=== PATIENT | female | born 1990 | race Caucasian/White ===

== ENCOUNTER → 2018-02-14 10:16 | Outpatient (CLI) | payer OTHER, SELFPAY ==
[2018-02-14 11:06] LABS: HCG Qualitative, Serum Negative (Negative)
== END ==
PROVIDERS: Visit Provider Internal Medicine Adolescent Medicine
DX: N92.6 Irregular menstruation, unspecified (principal)
CPT/HCPCS: 36415; 84703

== ENCOUNTER → 2018-11-19 12:28 | Outpatient (CLI) | payer OTHER, SELFPAY | PROVIDERS: PCP Internal Medicine Adolescent Medicine; Visit Provider Internal Medicine Adolescent Medicine | DX: N92.6 Irregular menstruation, unspecified (principal) | CPT/HCPCS: 36415; 84702 ==

== ENCOUNTER → 2018-11-30 11:59 | Outpatient (CLI) | payer OTHER, SELFPAY ==
[2018-11-30 12:34] LABS: Basophils % 0.3 % (0.1-2.0); Eosinophils # 0.2 K/mm3 (0.0-0.4); Eosinophils % 2.9 % (0.1-12.0); Hemoglobin 12.5 g/dL (12.2-16.2); Lymphocytes # 1.1 K/mm3 (0.7-4.5); Lymphocytes % 16.4 % (10-50); Mean Corpuscular HGB Conc 33.8 g/dL (31.8-35.4); Mean Corpuscular Hemoglobin 29.7 pg (27.0-31.2); Mean Corpuscular Volume 87.9 fl (81-99); Mean Platelet Volume 8.3 fl (7.4-10.4); Monocytes # 0.2 K/mm3 (0.1-1.0); Monocytes % 3.6 % (1.7-9.3); Neutrophils # 4.9 K/mm3 (1.8-7.8); Neutrophils % 76.8 % (37.0-80.0); Platelet Count 218 K/mm3 (142-424); Red Blood Count 4.21 M/mm3 (4.20-5.40); Red Cell Distribution Width 12.7 % (11.5-17.5); White Blood Count 6.4 K/mm3 (4.8-10.8)
[2018-12-01 07:20] LABS: HIV Screen 4th Generation wRfx Non Reactive (Non Reactive)
[2018-12-01 12:36] LABS: Hepatitis B Surface Antigen Negative (Negative); Hepatitis C Antibody <0.1 s/co ratio (0.0-0.9); Rapid Plasma Reagin Ab Titer Non Reactive (NonRea<1:1); Rubella Antibodies, IgG 1.38 index (Immune >0.99)
== END ==
PROVIDERS: Visit Provider Nurse Practitioner Obstetrics & Gynecology
DX: Z34.90 Encounter for supervision of normal pregnancy, unspecified, unspecified trimester (principal)
CPT/HCPCS: 36415; 85025; 86592; 86703; 86762; 86850; 87340; 87380; G0432

== ENCOUNTER → 2018-12-07 12:31 | Outpatient (CLI) | payer OTHER, SELFPAY ==
--- NOTE | 2018-12-07 12:33 | US_ITS ---
US OB transvaginal HISTORY: ITS.REASON: US OB Dates ORDERING PHYSICIAN: Ha Raymond MD PATIENT AGE: 28 years COMPARISON: None FINDINGS: An intrauterine gestational sac is present with a pole with a crown-rump length of 8w5dcm correlating to gestational age of 9w1d. heart tones are present with an FHR of 157 bpm's. Yolk sac is noted. The amnion and chorion have not yet fused. Adnexa: 3 cm corpus luteum on the left. IMPRESSION: Live intrauterine gestation at 8 weeks 5 days as described above. Estimated due date by Ultrasound is 07/14/2019
== END ==
PROVIDERS: PCP Internal Medicine Adolescent Medicine; Visit Provider Nurse Practitioner Obstetrics & Gynecology
DX: O26.841 Uterine size-date discrepancy, first trimester (principal)
CPT/HCPCS: 76817

== ENCOUNTER → 2019-02-11 12:34 | Outpatient (CLI) | payer OTHER, SELFPAY ==
[2019-02-11 13:19] LABS: Alanine Aminotransferase 12 U/L (12-78); Albumin Level 3.5 gm/dL (3.4-5.0); Alkaline Phosphatase 47 U/L (46-116); Anion Gap 16.1 mEq/L (5-15); Aspartate Amino Transferase 8 U/L (15-37); Bilirubin,Total 0.3 mg/dL (0.2-1.0); Blood Urea Nitrogen 10 mg/dL (7-18); Calcium 8.8 mg/dL (8.5-10.1); Carbon Dioxide 24 mmol/L (21.0-32.0); Chloride 103 mmol/L (98-107); Creatinine,Serum 0.55 mg/dL (0.55-1.02); Estimated Glomerular Filt Rate 134 ml/min (>60); GFR (African American) 162 ML/MIN (>60); Globulin 3.5 gm/dl (1.3-3.2); Glucose 73 mg/dL (74-106); Potassium 4.1 mmoL/L (3.5-5.1); Sodium 139 mmol/L (136-145)
== END ==
PROVIDERS: Visit Provider Nurse Practitioner Obstetrics & Gynecology
DX: L29.9 Pruritus, unspecified (principal); Z34.90 Encounter for supervision of normal pregnancy, unspecified, unspecified trimester
CPT/HCPCS: 80053

== ENCOUNTER → 2019-02-27 10:16 | Outpatient (CLI) | payer OTHER, SELFPAY ==
--- NOTE | 2019-02-27 10:17 | US_ITS ---
US OB /maternal detail: INDICATION: ITS.REASON: US OB Complete ORDERING PHYSICIAN: Ha Raymond MD PATIENT AGE: 28 years TECHNIQUE: ultrasound transabdominal scanning. COMPARISON: No previous relevant studies. FINDINGS: Single viable intrauterine gestation. Variable position ending in cephalic position at the end of the exam. Placenta: Post placenta grade 1. There is average amount fluid. The cervix appears satisfactory. Closed and measuring 3.4 cm in length. Complete survey performed and was unremarkable on the submitted images as in PACS. No discrete anomalies identified on survey imaging by technologist. Active fetus. There appears to be a two-vessel cord. There is some straightening of the cord as well which sometimes may simulate a two-vessel cord.. 4- chamber heart noted. Survey of brain & ventricles unremarkable. Face and neck survey unremarkable. Diaphragm and chest views unremarkable. Abdomen: Both kidneys noted and unremarkable. Stomach noted and satisfactory. Spine: Survey of the spine satisfactory with no anomalies identified nor imaged. Both arms and legs noted. Amniotic Fluid: Adequate. Maternal adnexa: No significant findings. Measurements: Average ultrasound age 20w6d. Gestational Age 20w3d. Estimated due date by ultrasound age 0807/11/2019. Estimated weight 377 grams. BPD = 20w5d OFD = 21w4d HC = 20w4d AC = 21w3d FL = 20w2d Growth Percentile= 65% Heart Rate = 152 bpm Cerebellum = 21w1s Humerus = 20w3d HC/AC is 1.11 (1.09-1.26). CI is 74% (70-86%). FL/BPD is 67%. FL/AC is 20%. IMPRESSION: There is a single live fetus in variable position with an average ultrasound age of 20 weeks and 6 days. There may be a two-vessel cord. Follow-up may confirm. Other anatomy is unremarkable. The fetus is active. Please see above for detail
== END ==
PROVIDERS: PCP Internal Medicine Adolescent Medicine; Visit Provider Nurse Practitioner Obstetrics & Gynecology
DX: Z36.0 Encounter for antenatal screening for chromosomal anomalies (principal)
CPT/HCPCS: 76811

== ENCOUNTER → 2019-06-12 16:23 | Outpatient (CLI) | payer OTHER, SELFPAY | PROVIDERS: Visit Provider Obstetrics & Gynecology | DX: Z34.90 Encounter for supervision of normal pregnancy, unspecified, unspecified trimester (principal) | CPT/HCPCS: 86403 ==

== ENCOUNTER 2019-07-08 05:32 | Inpatient (IN) ==
[2019-07-08 06:08] LABS: Microscopic, Urine URINE MICROSCOPIC (MICROSCOPIC)
[2019-07-08 06:08] LABS: Basophils % 0.3 % (0.1-2.0); Eosinophils # 0.2 K/mm3 (0.0-0.4); Eosinophils % 2.3 % (0.1-12.0); Hematocrit 32.6 % (37.0-47.0); Hemoglobin 10.5 g/dL (12.2-16.2); Lymphocytes # 1.3 K/mm3 (0.7-4.5); Lymphocytes % 19.8 % (10-50); Mean Corpuscular HGB Conc 32.2 g/dL (31.8-35.4); Mean Corpuscular Volume 80.9 fl (81-99); Mean Platelet Volume 9.9 fl (7.4-10.4); Monocytes # 0.3 K/mm3 (0.1-1.0); Monocytes % 4.3 % (1.7-9.3); Neutrophils # 4.9 K/mm3 (1.8-7.8); Neutrophils % 73.3 % (37.0-80.0); Platelet Count 178 K/mm3 (142-424); Red Blood Count 4.04 M/mm3 (4.20-5.40); Red Cell Distribution Width 14.5 % (11.5-17.5); White Blood Count 6.7 K/mm3 (4.8-10.8)
[2019-07-08 06:19] LABS: Anion Gap 15.8 mEq/L (5-15); Calcium 8.9 mg/dL (8.5-10.1)
[2019-07-08 06:40] LABS: Appearance,Urine CLEAR (Clear); Bilirubin,Urine Negative (Negative); Blood, Urine Negative (Negative); Color,Urine YELLOW (Yellow); Glucose,Urine (UA) Negative (Negative); Ketones,Urine Negative (Negative); Leukocyte Esterase,Urine Negative (Negative); Protein,Urine Negative (Negative); Urobilinogen,Urine 0.2 EU/dl (0.2)
[2019-07-08 06:48] LABS: Amphetamine/Metha Screen,Urine Negative ng/mL (<1000); Barbiturates Screen,Urine Negative ng/mL (<200); Benzodiazepines Screen,Urine Negative ng/mL (<200); Cannabinoid Screen,Urine Negative ng/mL (<50); Cocaine Screen,Urine Negative ng/mL (<300); Methadone Screen,Urine Negative ng/mL (<300); Opiate Screen,Urine Negative ng/mL (<300); Phencyclidine Screen,Urine Negative ng/mL (<25)
--- NOTE | 2019-07-08 08:12 | Progress Note ---
[facility] Anesthesia Record Part I Intake, IV Amount: 2,000 Estimated blood loss (mL): 600 Urine output (mL): 350 Blood Pressure: 115/87 SaO2: 98 Pulse Rate: 112 Respiratory Rate: 12 Temperature: 97.8 F Patient is:: Awake, Stable Stable to PACU at:: 08:10
--- NOTE | 2019-07-08 08:12 | Progress Note ---
[facility] Anesthesia Checklist - Structural Data Admitted From: Inpatient Planned Operative Procedure/s: c/section Consent for Planned Operative Procedure(s) Verified: Yes - Airway Assessment C-Spine Mobility Assessed: Yes TMJ Mobility Assessed: Yes Dentition: Good Dentition - Neurological Assessment Level of Consciousness: Awake, Alert, Appropriate - Anesthesia Plan Anesthesia Risk discussed: Yes Anesthesia Plan: Verified ASA Class: II Anesthesia Type: Spinal Acuity:: asa2 [facility] History I have reviewed the patient's past medical history: Yes *Have you ever received a pneumonia vaccine?: No *Have you received a flu vaccine this season?: No Anesthesia experience/problems:: none Other Surgeries: Yes: Amputation: No Fractures: No - *Social History Smoking Status: Never smoker Alcohol Intake: never Substance Use Type: denies use *Occupational Status:: employed *Travel in the last 8 weeks: None Family Hx:: No significant family history Para: 1
--- NOTE | 2019-07-08 08:13 | Operative Note ---
Date of procedure: 07/08/19 Pre-op Diagnosis:: Term , previous section Post-op Diagnosis:: Term , previous section Procedure performed:: Repeat lower segment transverse section Surgeon:: Ha Raymond MD PRESSURIZATION MECHANIC:: Anthony Russo Anesthesia: spinal Estimated blood loss (mL): 600 Clinical Note:: She is a 29-year-old 2 para 1 who was 39+ weeks gestational age. She has had a previous section and as a result of that was offered repeat lower segment transverse section at term. The risks and benefits of surgery were discussed with the patient prior to surgery. Operative findings:: She delivered a liveborn male child at 7:38 AM on the morning of July 08. Baby's Apgars were 8 at 1 minute and 9 at 5 minutes. Ovaries and tubes appeared normal. Operative note:: She was taken to the operating room where spinal anesthesia was found be adequate. She was prepped and draped in normal sterile fashion in the supine position with a leftward tilt. A Byrnes catheter was in the bladder. A Pfannenstiel skin incision was made with knife then carried through to the underlying layer of fascia with cautery. The fascia was opened in the midline with cautery and extended laterally using Maldonado scissors. Mustang clamps were applied to the superior aspect of the fascial incision which was tented up and the underlying rectus muscles dissected off using cautery. The Yday clamps were then applied to the inferior aspect of the fascial incision which in a similar fashion was tented up and the underlying rectus muscles dissected off using cautery. The rectus muscles were then in the midline, the peritoneum identified, and entered sharply with Metzenbaum scissors. This incision was then extended superiorly and inferiorly with cautery. We had good visualization of the bladder inferiorly. The bladder peritoneum was then opened in the midline and extended laterally using Metzenbaum scissors. A bladder flap was created digitally. Transverse incision was made through the uterine muscle to the amnion. This incision was then extended laterally using fingers traction. The amnion was entered sharply with knife. There was clear amniotic fluid. The 's head was then delivered atraumatically. This was followed by the anterior shoulder and the rest of the 's body atraumatically. The oropharynx and nasopharynx were bulb suctioned. The infant was then handed off to Dr. Scott who assigned Apgars of 8 at 1 minute and 9 at 5 minutes. We then obtained cord blood as well as cord pH. The pH was not obtained.The Román device was then placed within the abdominal cavity. Using gentle traction on the cord and countertraction on the fundus I was able to easily deliver the placenta intact. It had a normal three-vessel cord. The uterus was then cleared of clots and debris . The uterine incision was then efrain sed using running 0 Vicryl suture in a locked fashion. A second layer of the same suture was used to imbricate the first layer. There was a small amount of bleeding on both the left and right sides of the incision and interrupted [id number] Vicryl suture was used here to obtain excellent hemostasis the bladder peritoneum was then closed using running 2-0 Vicryl suture in a locked fashion. The gutters and cul-de-sac were then cleared of clots and debris . Once again hemostasis was assured. I then elected to place a large piece of Interceed along the uterine incision. The peritoneum was grasped with Ann clamps and closed using running 2-0 Vicryl suture. The rectus muscles were then reapproximated using running 0 Vicryl suture. The fascia was closed using running #1 Vicryl suture. The subcutaneous tissues were then irrigated with warm water followed by closure Trev's fascia using running 2-0 Monocryl suture. The skin was closed with edgar. I then cleaned the skin with Hibiclens. Sterile dressings were applied. She tolerated the procedure well and was taken to the recovery room in excellent condition. All sponges minute and needle counts were correct. Estimate a blood loss was approximately 600 mL. Condition: stable Disposition: PACU Specimens:: Products of conception Complications:: None
--- NOTE | 2019-07-08 08:13 | Progress Note ---
[facility] Anesthesia Record Part II Discharge Time: 08:40 Destination: Obstetric PACU nurse assessment reviewed?: Yes Patient Condition:: Good Anesthesia Complications:: None Swallowing reflex intact?: Yes Cyanosis?: No
--- NOTE | 2019-07-08 08:15 | History & Physical Report ---
OB - H&P: HPI Antepartum - History of Present Illness Chief complaint: Term , previous section History of present illness: She is a 29-year-old 2 para 1 at 39+ weeks gestational age. She has had a previous section and as a result of that was offered repeat lower segment transverse section at term. The risks and benefits of surgery were discussed with the patient prior to surgery. - History of Present Criteria for establishing EDC:: LMP confirmed by 1st trimester US care: good care Ultrasounds: normal 1st trimester US, normal mid trimester US Obstetrical complications: none Medical complications: none - Labs Blood type: A (+) positive Rubella: immune RPR/VDRL: nonreactive GBS status: negative [facility] History I have reviewed the patient's past medical history: Yes *Have you ever received a pneumonia vaccine?: No *Have you received a flu vaccine this season?: No Anesthesia experience/problems:: none Other Surgeries: Yes: Amputation: No Fractures: No - *Social History Smoking Status: Never smoker Alcohol Intake: never Substance Use Type: denies use *Occupational Status:: employed *Travel in the last 8 weeks: None Family Hx:: No significant family history Para: 1 Review of Systems - Review of Systems Review of systems:: pertinent systems reviewed and negative unless documented below Meds Home Medications Medication Instructions Recorded Confirmed Type folic acid 400 mcg tablet 0.4 mg PO DAILY 11/30/18 07/03/19 History vitamin no.138-folic acid tab PO tab 11/30/18 07/03/19 History 400 mcg-dha 25 mg chewable tablet ferrous sulfate 325 mg (65 mg 325 mg PO DAILY #30 tab 03/01/19 07/03/19 Rx iron) tablet,delayed release Allergies Allergy/AdvReac Type Severity Reaction Status Date / Time No Known Allergies Allergy Verified 07/03/19 14:55 OB - H&P: Exam - Physical Exam Vital signs: Temp Pulse Resp BP Pulse Ox 97.8 F 112 H 12 115/87 98 07/08/19 08:12 07/08/19 08:12 07/08/19 08:12 07/08/19 08:12 07/08/19 06:16 - Constitutional no acute distress - Routine HEENT Exam Head: Present: normocephalic Eye: Present: EOMI, PERRL ENT: Present: mucous membranes moist - Routine Neck Exam Present: supple, full ROM - Routine Respiratory Exam Absent: accessory muscle use (good air entry bilaterally), respiratory distress, wheezes, crackles - Routine Cardiovascular Exam Present: RRR. Absent: murmur - Routine Abdominal Exam Present: soft, normoactive bowel sounds. Absent: tenderness, distended, guarding - Routine Rectal Exam Patient deferred: visual exam, digital exam - Routine Exam Patient deferred: external exam, groin exam, perineal exam - Routine Extremities Exam Present: full ROM. Absent: cyanosis, edema - Routine Skin Exam Present: intact. Absent: cyanosis - Routine Neurological Exam Present: alert, oriented X3 - Routine Psychiatric Exam Present: normal affect OB - Results - Labs Labs: Short CBC 07/08/19 Range/Units 06:00 WBC 6.7 (4.8-10.8) K/mm3 Hgb 10.5 L (12.2-16.2) g/dL Hct 32.6 L (37.0-47.0) % Plt Count 178 (142-424) K/mm3 BMP 07/08/19 06:00 Sodium 138 Potassium 3.8 Chloride 104 Carbon Dioxide 22 BUN 7 Creatinine 0.59 Glucose 93 Calcium 8.9 Urine 07/08/19 Range/Units 05:40 Urine Color Yellow (Yellow) Urine Appearance Clear (Clear) Urine pH 6.0 (5.0-8.5) Ur Specific [place] 1.020 (1.005-1.030) Urine Protein Negative (Negative) Urine Glucose (UA) Negative (Negative) OB - A/P Antepartum (1) Delivery by section of full-term infant Current visit: Yes Status: Acute (2) Previous section Current visit: No Status: Acute - Additional Plan Planning to breastfeed?: Yes Plan: other Additional Information:: She is here for repeat lower segment transverse section at term.
--- NOTE | 2019-07-08 09:22 | Pharmacy Consult Notes ---
[facility] Pharmacy VTE Monitoring - Patient Demographics Admission date: 07/08/19 Report Date: 07/08/19 Time: 09:22 Allergies/Adverse Reactions: Patient Allergies No Known Allergies Allergy (Verified 07/03/19 14:55) Height: 1.6 m Weight: 87.543 kg Patient Problems: Current Active Problems Delivery by section of full-term infant (Acute) - VTE Risk Labs: VTE Related Lab Results Hgb 10.5 g/dL (12.2-16.2) L 07/08/19 06:00 Hct 32.6 % (37.0-47.0) L 07/08/19 06:00 Plt Count 178 K/mm3 (142-424) 07/08/19 06:00 BUN 7 mg/dL (7-18) 07/08/19 06:00 Creatinine 0.59 mg/dL (0.55-1.02) 07/08/19 06:00 Estimated Creat Clear 198 mL/min (50-200) 07/08/19 06:00 - Prophylaxis VTE Prophylaxis Ordered?: Yes Types of VTE Prophylaxis: IPCS Thigh High Location of Applied Device: Bilateral Lower Extremeties - VTE Diagnosis Confirmed Treatment or plan recommended: Continue Current Treatment
[2019-07-09 06:54] LABS: Basophils % 0.2 % (0.1-2.0); Eosinophils # 0.1 K/mm3 (0.0-0.4); Eosinophils % 2.1 % (0.1-12.0); Hematocrit 26.2 % (37.0-47.0); Hemoglobin 8.6 g/dL (12.2-16.2); Lymphocytes # 1.2 K/mm3 (0.7-4.5); Lymphocytes % 17.3 % (10-50); Mean Corpuscular HGB Conc 32.7 g/dL (31.8-35.4); Mean Corpuscular Volume 81.7 fl (81-99); Mean Platelet Volume 8.9 fl (7.4-10.4); Monocytes # 0.3 K/mm3 (0.1-1.0); Monocytes % 4.8 % (1.7-9.3); Neutrophils # 5.2 K/mm3 (1.8-7.8); Neutrophils % 75.7 % (37.0-80.0); Platelet Count 174 K/mm3 (142-424); Red Blood Count 3.21 M/mm3 (4.20-5.40); Red Cell Distribution Width 14.7 % (11.5-17.5); White Blood Count 6.9 K/mm3 (4.8-10.8)
--- NOTE | 2019-07-09 08:17 | Progress Note ---
Internal Medicine - PN: Subj *Date: 07/09/19 *Time: 08:17 Interval history: She is doing very well today. She is eating and drinking and ambulating. She is breast-feeding. Her lochia is normal. Her pain is reasonably well controlled Exam Vital signs and Labs for Last 24 Hours: Temp Pulse Resp BP Pulse Ox 98.3 F 93 H 18 118/60 97 07/08/19 15:45 07/08/19 15:45 07/08/19 15:45 07/08/19 15:45 07/08/19 14:45 Laboratory Results - last 24 hr 07/08/19 07:25: Urine Color Straw, Urine Appearance Clear, Urine pH 7.5, Ur Specific [place] <= 1.005, Urine Protein Negative, Urine Glucose (UA) Negative, Urine Ketones Negative, Urine Blood Negative, Urine Nitrate Negative, Urine Bilirubin Negative, Urine Urobilinogen 0.2, Ur Leukocyte Esterase Negative, Urine Bacteria Trace 07/08/19 07:58: POC Glucose 57 L 07/09/19 06:11: WBC 6.9, RBC 3.21 L, Hgb 8.6 L, Hct 26.2 L, MCV 81.7, MCH 26.7 L , MCHC 32.7, RDW 14.7, Plt Count 174, MPV 8.9, Neut % (Auto) 75.7, Lymph % (Auto) 17.3, Miller % (Auto) 4.8, Eos % (Auto) 2.1, Baso % (Auto) 0.2, Neut # (Auto) 5.2, Lymph # (Auto) 1.2, Miller # (Auto) 0.3, Eos # (Auto) 0.1, Baso # (Auto) 0.0 I & O for Last 24 hours: Intake & Output 07/06/19 07/07/19 07/08/19 07/09/19 11:59 11:59 11:59 11:59 Intake Total 1999 Output Total 325 / 325 1025 / 1025 Balance 1675 / 1675 -1025 / -1025 Weight 193 lb - Constitutional no acute distress Assessment and Plan (1) Delivery by section of full-term infant Current visit: Yes Status: Acute Category: Medical Code(s): O82 - Encounter for delivery without indication (2) Previous section Current visit: No Status: Acute Category: Surgical Code(s): Z98.891 - History of uterine scar from previous surgery - Assessment and plan all Dx Assessment and Plan for all problems:: We will plan to send her home in 48 hours. She is otherwise stable.
--- NOTE | 2019-07-10 08:42 | Progress Note ---
Internal Medicine - PN: Subj *Date: 07/10/19 *Time: 08:39 Interval history: She continues to do well. She is breast-feeding. Her lochia is normal. She is postop day 2 from a section. Her pain is well controlled. Incision is clean and dry. Exam Vital signs and Labs for Last 24 Hours: Temp Pulse Resp BP Pulse Ox 98.3 F 93 H 18 118/60 97 07/08/19 15:45 07/08/19 15:45 07/08/19 15:45 07/08/19 15:45 07/08/19 14:45 I & O for Last 24 hours: Intake & Output 07/07/19 07/08/19 07/09/19 07/10/19 11:59 11:59 11:59 11:59 Intake Total 1999 Output Total 325 / 325 1025 / 1025 Balance 1675 / 1675 -1025 / -1025 Weight 193 lb - Constitutional no acute distress Assessment and Plan (1) Delivery by section of full-term infant Current visit: Yes Status: Acute Category: Medical Code(s): O82 - Encounter for delivery without indication (2) Previous section Current visit: No Status: Acute Category: Surgical Code(s): Z98.891 - History of uterine scar from previous surgery - Assessment and plan all Dx Assessment and Plan for all problems:: She is doing very well today. We will plan to send her home tomorrow.
--- NOTE | 2019-07-11 08:23 | Discharge Summary ---
General - General Admission date:: 07/08/19 Discharge date: 07/11/19 HPI HPI: She is a 29-year-old 2 now para 2 who is 39 weeks gestational age. She had a previous section for a large for gestational age as result of that was offered repeat lower segment transverse section at term. Hospital Course Hospital Course: On July 08, 2019 she underwent a repeat lower segment transverse section. She delivered a liveborn male child at 7:38 AM on the morning of the . Baby was 8 pounds 15 ounces and had Apgars of 8 at 1 minute and 9 at 5 minutes. She has done well and has remained afebrile throughout hospitalization. She is eating and drinking and ambulating. She is breast- feeding. Her lochia is normal. She has a positive blood, she is rubella immune and was group B streptococcus negative. Her bulk delivery driver is Dr. Scott. She is discharged home to follow-up with me in approximately 2 weeks time. She is given a prescription for Percocet 5/325 number 20 tablets. She will take Motrin and Tylenol as needed as well. Her condition on discharge is stable and improved. She was given the usual instructions with respect to limiting her activity, driving and sexual activity. Rhogam Administration: Not Indicated Objective Vital signs: Temp Pulse Resp BP Pulse Ox 98.3 F 93 H 18 118/60 97 07/08/19 15:45 07/08/19 15:45 07/08/19 15:45 07/08/19 15:45 07/08/19 14:45 no acute distress DS: Diagnosis - Discharge Diagnosis (1) Delivery by section of full-term infant Status: Acute (2) Previous section Status: Acute Discharge Plan - Patient Discharge Instructions ACTIVITY: No heavy lifting DIET: continue same diet - Follow up Plan Disposition: Home, Self-Long-Term Medications: Home Medications Medication Instructions Recorded Confirmed Type vitamin no.138-folic acid 400 tab PO DAILY tab 11/30/18 07/08/19 History 400 mcg-dha 25 mg chewable tablet ferrous sulfate 325 mg (65 mg 325 mg PO DAILY 07/08/19 07/08/19 History iron) tablet,delayed release Oxycodone HCl/Acetaminophen 1 - 2 tab PO Q4-6H PRN #20 tab 07/11/19 Rx [Percocet 5/325mg tablet] Prescriptions/Medication Reconciliation: New Oxycodone HCl/Acetaminophen [Percocet 5/325mg tablet] 1 - 2 tab PO Q4-6H PRN #20 tab PRN Reason: Severe Pain Continued vitamin no.138-folic acid 400 mcg-dha 25 mg chewable tablet 400 tab PO DAILY tab No Action ferrous sulfate 325 mg (65 mg iron) tablet,delayed release 325 mg PO DAILY - Problem Reconciliation Problems Reviewed?: Yes
[2019-07-11 10:14] VITALS: BP 110/68
== END 2019-07-11 09:45 | disposition home or self-care (01) | DRG 788 ==
LOC: OB 05:32
PROVIDERS: ADMIT Nurse Practitioner Obstetrics & Gynecology; ATTEND Nurse Practitioner Obstetrics & Gynecology
CPT/HCPCS: 36415; 59025; 80048; 80305; 81001; 82800; 82962; 85025; 86850; 90715; 94761; J2405

== ENCOUNTER → 2020-08-20 19:12 | Outpatient (CLI) | payer OTHER, SELFPAY | PROVIDERS: PCP Internal Medicine Adolescent Medicine; Visit Provider Internal Medicine Adolescent Medicine | DX: Z03.818 Encounter for observation for suspected exposure to other biological agents ruled out (principal) | CPT/HCPCS: U0003 ==

== ENCOUNTER → 2021-09-16 10:03 | Outpatient (CLI) | payer OTHER, SELFPAY ==
[2021-09-16 10:08] LABS: Microscopic, Urine URINE MICROSCOPIC (MICROSCOPIC)
[2021-09-16 13:14] LABS: Appearance,Urine CLEAR (Clear); Bilirubin,Urine Negative (Negative); Blood, Urine 1+ (Negative); Color,Urine YELLOW (Yellow); Glucose,Urine (UA) Negative (Negative); Ketones,Urine Negative (Negative); Leukocyte Esterase,Urine Negative (Negative); Nitrate,Urine Negative (Negative); PH,Urine 7.5 (5.0-8.5); Protein,Urine Negative (Negative); Urobilinogen,Urine 0.2 EU/dl (0.2)
[2021-09-16 13:35] LABS: Bacteria,Urine 1+ /lpf; Squamous Epithelial Cell,Urine Occasional #/hpf (0-5)
== END ==
PROVIDERS: Visit Provider Internal Medicine Adolescent Medicine
DX: R30.0 Dysuria (principal)
CPT/HCPCS: 81001; 87086; 87088; 87186

== ENCOUNTER → 2021-12-03 07:32 | Outpatient (CLI) | payer OTHER, SELFPAY ==
[2021-12-03 08:10] LABS: Basophils % 1.2 % (0.1-2.0); Eosinophils # 0.2 K/mm3 (0.0-0.4); Eosinophils % 6.7 % (0.1-12.0); Hematocrit 41.7 % (37.0-47.0); Hemoglobin 13.6 g/dL (12.2-16.2); Lymphocytes # 1.4 K/mm3 (0.7-4.5); Lymphocytes % 39.2 % (10-50); Mean Corpuscular HGB Conc 32.6 g/dL (31.8-35.4); Mean Corpuscular Hemoglobin 31.1 pg (27.0-31.2); Mean Corpuscular Volume 95.2 fl (81-99); Mean Platelet Volume 8.5 fl (7.4-10.4); Monocytes # 0.2 K/mm3 (0.1-1.0); Monocytes % 4.8 % (1.7-9.3); Neutrophils # 1.8 K/mm3 (1.8-7.8); Neutrophils % 48.2 % (37.0-80.0); Platelet Count 285 K/mm3 (142-424); Red Blood Count 4.38 M/mm3 (4.20-5.40); Red Cell Distribution Width 12.3 % (11.5-17.5); White Blood Count 3.7 K/mm3 (4.8-10.8)
[2021-12-03 10:39] LABS: Chloride 106 mmol/L (98-107)
[2021-12-03 10:40] LABS: Potassium 4.5 mmoL/L (3.5-5.1); Sodium 141 mmol/L (136-145)
[2021-12-03 10:42] LABS: Alanine Aminotransferase 11 U/L (12-78); Alkaline Phosphatase 34 U/L (38-126); Aspartate Amino Transferase 20 U/L (14-36); Bilirubin,Total 0.7 mg/dl (0.2-1.3); Blood Urea Nitrogen 15 mg/dl (7-17); Estimated Glomerular Filt Rate 99 ml/min (>60); GFR (African American) 120 ML/MIN (>60)
[2021-12-03 10:43] LABS: Albumin Level 4.4 g/dl (3.5-5.0); Albumin/Globulin Ratio 1.8 (1.1-1.8); Anion Gap 11.5 mEq/L (5-15); Calcium 8.9 mg/dl (8.4-10.2); Carbon Dioxide 28 mmol/L (22.0-30.0); Chol/HDL Ratio 2.6 (1-3.5); Cholesterol 110 mg/dl (140-200); Globulin 2.4 g/dL (1.3-3.2); Glucose 85 mg/dl (74-100); HDL Cholesterol 43 mg/dl (40-60); Total Protein,Serum 6.8 g/dl (6.3-8.2); Triglycerides 36 mg/dl (30-150); VLDL Cholesterol 7 mg/dL (0-40)
[2021-12-03 10:59] LABS: 25-OH Vitamin D, Total 42.7 ng/mL (30-100)
[2021-12-03 11:04] LABS: Free Thyroxine Index 2.5 ug/dL (5.93-13.13); T4 (Thyroxine) 7.4 ug/dl (5.53-11.0); Triiodothryronine (T3) Uptake 34 % (23.5-40.5)
[2021-12-03 11:16] LABS: Direct LDL Cholesterol 59.91 mg/dL (100-129)
[2021-12-03 11:18] LABS: Thyroid Stimulating Hormone 1.74 uIU/mL (0.465-4.68)
[2021-12-03 11:55] LABS: Vitamin B12 589 pg/mL (239-931)
[2021-12-06 12:09] LABS: Sjogren's Anti-SS-A <0.2 AI (0.0-0.9); Sjogren's Anti-SS-B <0.2 AI (0.0-0.9)
[2021-12-06 16:12] LABS: Antinuclear Antibodies, IFA Negative (.)
== END ==
PROVIDERS: Visit Provider Internal Medicine Adolescent Medicine
DX: Z00.00 Encounter for general adult medical examination without abnormal findings (principal); K11.7 Disturbances of salivary secretion; R53.81 Other malaise; R53.83 Other fatigue
CPT/HCPCS: 36415; 80053; 80061; 82306; 82607; 84436; 84443; 84479; 85025; 86038; 86235

== ENCOUNTER → 2021-12-07 08:42 | Outpatient (CLI) | payer OTHER, SELFPAY ==
[2021-12-07 08:46] LABS: Adenovirus,PCR Not Detected (NotDetected); Coronavirus 229E Not Detected (NotDetected); Coronavirus NL63 Not Detected (NotDetected); Coronavirus OC43 Not Detected (NotDetected); Coronovirus HKU1,PCR Not Detected (NotDetected); Human Metapneumovirus Not Detected (NotDetected); Influenza A, PCR Not Detected (NotDetected); Influenza AH1, 2009 Not Detected (NotDetected); Influenza AH1, PCR Not Detected (NotDetected); Rhinovirus/Enterovirus Not Detected (NotDetected)
[2021-12-07 08:47] LABS: Bordetella Pertussis Not Detected (NotDetected); Chlamydophila Pneumoniae, PCR Not Detected (NotDetected); Influenza AH3,PCR Not Detected (NotDetected); Influenza B, PCR Not Detected (NotDetected); Mycoplasma Pneumoniae, PCR Not Detected (NotDetected); Parainfluenza 1, PCR Not Detected (NotDetected); Parainfluenza 2, PCR Not Detected (NotDetected); Parainfluenza 3, PCR Not Detected (NotDetected); Parainfluenza 4, PCR Not Detected (NotDetected); Respiratory Syncytial Virus Not Detected (NotDetected)
[2021-12-07 11:32] LABS: Coronavirus 19, PCR Detected (NotDetected)
== END ==
PROVIDERS: Visit Provider Internal Medicine Adolescent Medicine
DX: U07.1 COVID-19 (principal)
CPT/HCPCS: 87581; 87632; 87798; C9803; U0003; U0005

== ENCOUNTER → 2023-11-09 13:07 | Outpatient (CLI) | payer OTHER, SELFPAY ==
[2023-11-09 15:13] LABS: HCG,Quantitative 13430 mIU/ml (0-5.42)
[2023-11-11 10:09] LABS: Progesterone 22.6 ng/mL (.)
== END ==
PROVIDERS: PCP Nurse Practitioner Family; Visit Provider Obstetrics & Gynecology
DX: Z32.01 Encounter for pregnancy test, result positive (principal)
CPT/HCPCS: 36415; 84144; 84702

== ENCOUNTER 2023-11-24 16:28 | Outpatient (CLI) | payer OTHER, SELFPAY | END 2023-11-24 23:59 | LOC: LAB.DROPOF 16:29 | PROVIDERS: PCP Obstetrics & Gynecology; Visit Provider Obstetrics & Gynecology | DX: Z34.91 Encounter for supervision of normal pregnancy, unspecified, first trimester (principal); Z3A.01 Less than 8 weeks gestation of pregnancy | CPT/HCPCS: 87086 ==

== ENCOUNTER 2023-12-26 10:30 | Outpatient (CLI) | payer OTHER, SELFPAY ==
[2023-12-26 11:00] LABS: Basophils % 0.3 % (0.1-2.0); Eosinophils # 0.2 K/mm3 (0.0-0.4); Eosinophils % 2.9 % (0.1-12.0); Hematocrit 36.4 % (37.0-47.0); Hemoglobin 12.6 g/dL (12.2-16.2); Lymphocytes # 1.1 K/mm3 (0.7-4.5); Lymphocytes % 20.9 % (10-50); Mean Corpuscular HGB Conc 34.6 g/dL (31.8-35.4); Mean Corpuscular Hemoglobin 30.5 pg (27.0-31.2); Mean Corpuscular Volume 88.4 fl (81-99); Monocytes # 0.2 K/mm3 (0.1-1.0); Monocytes % 3.6 % (1.7-9.3); Neutrophils # 3.8 K/mm3 (1.8-7.8); Neutrophils % 72.3 % (37.0-80.0); Platelet Count 200 K/mm3 (142-424); Red Blood Count 4.12 M/mm3 (4.20-5.40); Red Cell Distribution Width 13.6 % (11.5-17.5); White Blood Count 5.2 K/mm3 (4.8-10.8)
[2023-12-27 12:34] LABS: Rapid Plasma Reagin Ab Titer Non Reactive titer (NonRea<1:1)
[2023-12-28 12:37] LABS: HIV Screen 4th Generation wRfx Non Reactive; Hepatitis B Surface Antigen Negative; Hepatitis C Antibody Non Reactive
[2023-12-28 12:38] LABS: Rubella Antibodies, IgG 3.19
== END 2023-12-26 23:59 ==
LOC: LAB 10:31
PROVIDERS: PCP Nurse Practitioner Family; Visit Provider Obstetrics & Gynecology
DX: Z34.91 Encounter for supervision of normal pregnancy, unspecified, first trimester (principal); Z3A.11 11 weeks gestation of pregnancy
CPT/HCPCS: 36415; 85025; 86593; 86703; 86762; 86850; 87340; 87380; G0432

== ENCOUNTER 2024-02-28 12:48 | Outpatient (CLI) | payer OTHER, SELFPAY ==
--- NOTE | 2024-02-28 12:48 | US_ITS ---
PROCEDURE: US OB /MATERNAL DETAIL CLINICAL INDICATION: 20 week anatomy scan COMPARISON: No exams were available for comparison FINDINGS: Transabdominal sonographic images of the pelvis were obtained. From her established due date she is 20 weeks 4 days. Single viable intrauterine gestation. Cephalic position. Placenta: Posterolateralplacenta grade 1. There is an average amount of fluid. The cervix appears satisfactory. Closed and measuring 3.7 cm in length. Complete survey performed and was unremarkable on the submitted images as in PACS. No discrete anomalies identified on survey imaging by technologist. Active fetus. Three-vessel cord with satisfactory umbilical cord insertion. 4- chamber heart noted. Situs, aortic arch, LVOT, RVOT, three-vessel view appear normal. Survey of brain & ventricles Unremarkable. Cerebellum, thalamus, choroid plexus, cisterna magna appear normal. Face and neck survey unremarkable. Profile, nasion, lips and nose appeared normal. Diaphragm and chest views unremarkable. Abdomen: Both kidneys noted and unremarkable. Stomach and bladder noted and satisfactory. Spine: Survey of the spine satisfactory with no anomalies identified nor imaged. Cervical, thoracic, lower spine appear normal. Both arms and legs noted. Amniotic Fluid: Adequate. Measurements: Average ultrasound age 20weeks 5days. Estimated due date by ultrasound age 0807/12/2024. Estimated weight 354g BPD = 21weeks 1day HC = 20weeks 6days AC = 20weeks 3days FL = 20weeks 3days Growth Percentile= 38 Heart Rate = 153bpm Cerebellum = 20weeks 4days Humerus = 21weeks 1day HC/AC is 1.23 FL/BPD is 0.67 FL/AC is 0.22 IMPRESSION: 1. Viable fetus in the cephalic presentation with a posterolateral placenta grade 1. 2. The fluid is within normal limits. 3. Anatomical scan appears normal. 4. biometry is consistent with dates. Dictated by: Ha Raymond MD 02/28/2024 15:40 Ha Raymond MD in OV 02/28/2024 15:40
== END 2024-02-28 23:59 | disposition home or self-care (01) ==
LOC: RAD 12:48
PROVIDERS: PCP Nurse Practitioner Family; Visit Provider Obstetrics & Gynecology
DX: O26.892 Other specified pregnancy related conditions, second trimester (principal); Z3A.20 20 weeks gestation of pregnancy
CPT/HCPCS: 76811

== ENCOUNTER 2024-03-21 07:58 | Outpatient (CLI) | payer OTHER, SELFPAY ==
[2024-03-21 08:47] LABS: Glucose,Fasting 88 mg/dl (74-100)
[2024-03-21 09:54] LABS: Glucose 1 Hour 81 mg/dL (74-100)
[2024-03-21 13:52] LABS: Basophils % 0.6 % (0.1-2.0); Eosinophils # 0.1 K/mm3 (0.0-0.4); Eosinophils % 1.8 % (0.1-12.0); Hematocrit 32.8 % (37.0-47.0); Hemoglobin 10.7 g/dL (12.2-16.2); Lymphocytes # 1.2 K/mm3 (0.7-4.5); Lymphocytes % 17.3 % (10-50); Mean Corpuscular HGB Conc 32.5 g/dL (31.8-35.4); Mean Corpuscular Hemoglobin 30.4 pg (27.0-31.2); Mean Corpuscular Volume 93.5 fl (81-99); Mean Platelet Volume 9.3 fl (7.4-10.4); Monocytes # 0.4 K/mm3 (0.1-1.0); Monocytes % 4.9 % (1.7-9.3); Neutrophils # 5.3 K/mm3 (1.8-7.8); Neutrophils % 75.3 % (37.0-80.0); Platelet Count 217 K/mm3 (142-424); Red Blood Count 3.51 M/mm3 (4.20-5.40); Red Cell Distribution Width 12.8 % (11.5-17.5); White Blood Count 7.1 K/mm3 (4.8-10.8)
== END 2024-03-21 23:59 | disposition home or self-care (01) ==
PROVIDERS: PCP Nurse Practitioner Family; Visit Provider Obstetrics & Gynecology
DX: O26.892 Other specified pregnancy related conditions, second trimester (principal); Z3A.24 24 weeks gestation of pregnancy
CPT/HCPCS: 36415; 82951; 85025

== ENCOUNTER 2024-07-04 15:38 | Inpatient (IN) | payer OTHER, SELFPAY ==
[2024-07-04] VITALS (7 sets, daily range): BP systolic 117–124; BP diastolic 58–75; PULSE 82–94; RESP 14–20; TEMP 36.2–36.9; O2SAT 98–100; BMI 31.2; BMI 31.0
[2024-07-04 16:13] LABS: Anion Gap 10.7 mEq/L (5-15); Blood Urea Nitrogen 8 mg/dl (7-17); Calcium 8.9 mg/dl (8.4-10.2); Carbon Dioxide 23 mmol/L (22.0-30.0); Chloride 106 mmol/L (98-107); Creatinine Clearance Estimated 263 mL/min (50-200); Estimated Glomerular Filt Rate 185 ml/min (>60); GFR (African American) 224 ML/MIN (>60); Glucose 84 mg/dl (74-100); Potassium 3.7 mmoL/L (3.5-5.1); Sodium 136 mmol/L (136-145)
[2024-07-04 16:18] LABS: Basophils % 0.4 % (0.1-2.0); Eosinophils # 0.2 K/mm3 (0.0-0.4); Eosinophils % 1.9 % (0.1-12.0); Hematocrit 31.8 % (37.0-47.0); Hemoglobin 10.3 g/dL (12.2-16.2); Lymphocytes # 1.2 K/mm3 (0.7-4.5); Lymphocytes % 15.4 % (10-50); Mean Corpuscular HGB Conc 32.3 g/dL (31.8-35.4); Mean Corpuscular Hemoglobin 27.1 pg (27.0-31.2); Mean Corpuscular Volume 83.9 fl (81-99); Mean Platelet Volume 9.2 fl (7.4-10.4); Monocytes # 0.3 K/mm3 (0.1-1.0); Neutrophils # 6.1 K/mm3 (1.8-7.8); Neutrophils % 78.3 % (37.0-80.0); Platelet Count 219 K/mm3 (142-424); Red Blood Count 3.79 M/mm3 (4.20-5.40); Red Cell Distribution Width 14.7 % (11.5-17.5); White Blood Count 7.7 K/mm3 (4.8-10.8)
[2024-07-04] MEDS: LACTATED RINGERS 1000ML 1,000 ML 250 ML IV (16:34)
--- NOTE | 2024-07-04 17:13 | P.HP_ITS ---
OB - H&P: HPI Antepartum History of Present Illness Chief complaint: regular, painful contractions History of present illness: Mrs Shayla Eller is a 34 yo at 38w5d who presents to [facility] L&D with complaint of regular, painful contractions. She states contractions have been irregular for the past few days but increased after lunch today. No leakage of fluid or vaginal bleeding. Baby is active. History of x 2. Upon arrival to L&D she was noted to be idania every 3-4 minutes with a lot of rectal pressure during contraction. SVE 0.5/50/-2 midline, very soft. She was given IV fluids with little relief from contractions. She is complete with childbearing and desire permanent sterilization. History of Present Criteria for establishing EDC:: LMP confirmed by 1st trimester US Ultrasounds: normal mid trimester US Obstetrical complications: previous (x 2) Medical complications: none Labs Blood type: A (+) positive Rubella: immune RPR/VDRL: nonreactive HBsAG: negative PFSH PFS Disclaimer: The information contained in this section may have been updated after the patient was seen, as this information can be updated by other users. Medical History (Updated 07/04/24 @ 17:26 by Hayley Sutherland DO) with 38 completed weeks gestation Spontaneous onset of labor Nausea Request for sterilization Surgical History History of section Hx of oral surgery Family History Other Coronary artery disease Heart attack Social History (Updated 07/04/24 @ 16:25 by Meghan Sullivan RN) Smoking Status: Never smoker alcohol intake: never substance use type: denies use current occupational status: employed Travel in the last 8 weeks: None Review of Systems Review of Systems Review of systems:: pertinent systems reviewed and negative unless documented below *Genitourinary Comments: + contractions Meds Home Medications and Allergies Home Medications ?Medication ?Instructions ?Recorded ?Confirmed ?Type vit 87-iron carb,asp 18 1 cap PO DAILY #30 caps 12/22/23 07/03/24 Rx mg-folic acid 1 mg-dha 350 mg capsule (Prenate Mini (ferrous asparto glycinate)) New Prescriptions to Start Prescriptions: Allergies Allergy/AdvReac Type Severity Reaction Status Date / Time No Known Allergies Allergy Verified 07/03/24 13:46 OB - H&P: Exam Physical Exam Vital signs: Temp Pulse Resp BP Pulse Ox O2 Del Method 98.4 F 94 H 18 121/75 98 Room Air 07/04/24 16:20 07/04/24 16:20 07/04/24 16:20 07/04/24 16:20 07/04/24 16:20 07/04/24 16:20 Constitutional no acute distress and cooperative Routine HEENT Exam Head: Present normocephalic and atraumatic Eye: Absent conjunctivae pink ENT: Present mucous membranes moist Routine Neck Exam Present full ROM Routine Respiratory Exam Present CTA bilaterally and normal respiratory effort Routine Cardiovascular Exam Present RRR Routine Abdominal Exam Present soft (Gravid); Absent tenderness Routine Rectal Exam Patient deferred: visual exam Routine Exam External: Present normal urethra appearance; Absent erythema, swelling, tenderness or lesions Routine Extremities Exam Present full ROM; Absent edema or calf tenderness Routine Neurological Exam Present alert, moving all extremities and normal speech Routine Psychiatric Exam Present normal affect and cooperative Detailed Labor and Delivery Exam Dilation (cm): 1 Effacement (%): 50 Cervix position: mid station: -2 Consistency: soft Membranes: intact Baseline heart rate: 145 monitor accelerations: Present monitor decelerations: Late (ox 1) MCC variability: Moderate (11-25) Contraction frequency (min): 4 Tachysystole: No OB - Results Labs Labs: Short CBC 07/04/24 Range/Units 15:40 WBC 7.7 (4.8-10.8) K/mm3 Hgb 10.3 L (12.2-16.2) g/dL Hct 31.8 L (37.0-47.0) % Plt Count 219 (142-424) K/mm3 BMP 07/04/24 15:40 Sodium 136 Potassium 3.7 Chloride 106 Carbon Dioxide 23 BUN 8 Creatinine 0.40 L Glucose 84 Calcium 8.9 OB - A/P Antepartum (1) Spontaneous onset of labor: Status: Acute (2) with 38 completed weeks gestation: Status: Acute (3) History of section: Problem details: x 2 Status: Acute (4) Request for sterilization: Status: Acute Additional Plan Planning to breastfeed?: Yes Additional Information:: Admit to [facility] L&D for onset of labor with history of x 2. She is complete with childbearing and desire permanent sterilization Discussed risks, benefits, alternatives, expectations and possible complications of surgery. All questions addressed and answered. She voiced understanding of risks and possible complications. Consent form signed. Proceed with RLTCS with bilateral salpingectomy
[2024-07-04] MEDS: CEFAZOLIN SODIUM 2 GM in 0.9 % SODIUM CHLORIDE 100 ML IV (17:31)
--- NOTE | 2024-07-04 18:52 | P.OP_ITS ---
Date of procedure: 07/04/24 Pre-op Diagnosis:: 1. IUP at 38w5d2 2. Onset of labor 3. History of x 2 4. Complete family status, desires permanent sterilization Post-op Diagnosis:: 1. IUP at 38w5d2 2. Onset of labor 3. History of x 2 4. Complete family status, desires permanent sterilization Procedure performed:: Repeat Low Transverse Section, bilateral salpingectomy Surgeon:: Hayley Sutherland DO Gis Geographer(s):: Ha Raymond MD SODA CLERK:: Anthony Russo Anesthesia: spinal Estimated blood loss (mL): 700 Clinical Note:: Mrs Shayla Eller is a 34 yo at 38w5d who presents to [facility] L&D with complaint of regular, painful contractions. She states contractions have been irregular for the past few days but increased after lunch today. No leakage of fluid or vaginal bleeding. Baby is active. History of x 2. Upon arrival to L&D she was noted to be idania every 3-4 minutes with a lot of rectal pressure during contraction. SVE 0.5/50/-2 midline, very soft. She was given IV fluids with little relief from contractions. She is complete with childbearing and desire permanent sterilization. Operative findings:: 1. Live male baby, Abimael, weighing 7 lb 9 oz, APGARs 8 (1 min), 9 (5 min) 2. Grossly normal appearing uterus, bilateral fallopian tube and ovaries Operative note:: The risks, benefits and alternatives of the procedure were reviewed with the patient. Informed consent was obtained. Patient was taken to the operating room where epidural was bolused. The patient received 2 grams of Ancef preoperatively. Patient was placed in dorsal supine position with a leftward tilt. SCDs in place. Byrnes catheter had been placed and was draining clear urine prior to the start of the procedure. heart tones were obtained. Patient was then prepped and draped in normal sterile fashion. Allis clamp test was performed to ensure adequate anesthesia. A Pfannenstiel skin incision was made along prior pfannenstiel scar, 2 cm above pubic symphysis. This was carried through to underlying layer of fascia. Fascia was incised in midline, extended laterally with Maldonado scissors. Superior aspect of fascial incision was grasped with two Liz clamps, elevated up, and rectus muscle dissected off bluntly and sharply with Maldonado scissors. Inferior aspect of fascial incision was grasped with two Liz clamps, elevated up, and rectus muscle dissected off bluntly and sharply with Maldonado scissors. The retcus muscle was then in the midline and the peritoneum was entered bluntly with a digit. Peritoneal incision was then extended superiorly and inferiorly with good visualization of the bladder. Román retractor was inserted. The lower uterine segment was incised in a tra nsverse fashion. Clear amniotic fluid was noted. Head was delivered without difficulty. Remainder of body was delivered without difficulty. Mouth and nares were bulb suctioned. Spontaneous cry was noted. Delayed cord clamping was performed for 60 seconds. The umbilical cord was clamped and cut. The was handed to awaiting pediatric staff in stable condition. Dr. Scott was present. Apgars were 8 (1 min), 9 (5 min). Cord blood was obtained. Gentle traction on the umbilical cord and uterine fundal massage delivered the placenta. Placenta was intact. Uterus was cleared of all clots and debris with a moist laparotomy sponge. Corners of the uterine incision were grasped with Allis clamps. The uterine incision was reapproximated with # 1 Vicryl suture in a running, locked stitch. Second layer of the same stitch was used to imbricate the incision. Vesicouterine peritoneum was reapproximated in a running locked stitch with 0- Vicryl suture. Hemostasis was noted. Attention was then turned to the left fallopian tube, which was grasped with a [place] clamp. Enseal device was used to clamp, ligate and transect the right mesosalpinx and fallopian tube at uterine cornua,. Same procedure was carried out on the contralateral side Uterine fundus was noted to be very boggy. A prophylactic B-Ford stitch was placed. Methergine 0.2 mg IM given. Posterior cul-de-sac was cleaned with moist laparotomy sponge. Gutters cleared of all clots and debris with a moist laparotomy sponge. Reinspection of the lower uterine segment demonstrated small amount of oozing. Lora was applied over uterine incision. Hemostasis was noted. At this point all instruments and sponges were removed from the pelvis.? The peritoneum was grasped with Ann clamps x 3. The peritoneum was reapproximated with 0 Vicryl suture in a running stitch. The corners of the fascia were grasped with Liz clamps, and the fascia was reapproximated with # 1 Vicryl suture. Subcutaneous tissue was irrigated with clear return of fluids. The subcutaneous tissue was reapproximated with 3-0 Vicryl. The skin was reapproximated with Insorb edgar. Telfa was placed over closed Pfannenstiel skin incision. At the end of the procedure, the uterus was firm with minimal vaginal bleeding. Patient tolerated the procedure well. Instrument, sponges and needle counts were correct x 2. Mom and baby were transported to recovery room in stable condition. Condition: stable Disposition: floor Specimens:: 1. Bilateral fallopian tubes Complications:: None
--- NOTE | 2024-07-04 18:57 | EXP.ANES.I ---
[facility] Anesthesia Record Part I Anesthesia Record I Intake, IV Amount: 1,500 Hydration: Adequate Estimated blood loss (mL): 700 Urine output (mL): 250 Blood Pressure: 117/65 SaO2: 100 Pulse Rate: 86 Airway Patency: Patent Respiratory Rate: 14 Temperature: 97.5 F Patient is:: Stable Stable to PACU at:: 18:53
--- NOTE | 2024-07-04 19:07 | P.PNANES_ITS ---
[facility] Disclaimer: The information contained in this section may have been updated after the patient was seen, as this information can be updated by other users. Medical History (Updated 07/04/24 @ 17:26 by Hayley Sutherland DO) with 38 completed weeks gestation Spontaneous onset of labor Nausea Request for sterilization Surgical History History of section Hx of oral surgery Family History Other Coronary artery disease Heart attack Social History (Updated 07/04/24 @ 16:25 by Meghan Sullivan RN) Smoking Status: Never smoker alcohol intake: never substance use type: denies use current occupational status: employed Travel in the last 8 weeks: None [facility] Anesthesia Checklist Patient Identification Patient Identification: Verbal (Name & ) Structural Data Admitted From: Inpatient Planned Operative Procedure/s: c/section Consent for Planned Operative Procedure(s) Verified: Yes Airway Assessment Mallampati Score:: Class II C-Spine Mobility Assessed: Yes TMJ Mobility Assessed: Yes Dentition: Good Dentition Neurological Assessment Level of Consciousness: Awake, Alert and Appropriate Anesthesia Plan Anesthesia Risk discussed: Yes Anesthesia Plan: Verified ASA Class: II Anesthesia Type: Spinal
[2024-07-04] MEDS: KETOROLAC 30MG/ML VIAL 30 MG IV (19:13)
[2024-07-04] MEDS: MEPERIDINE 25MG/ML 1ML SYRINGE 25 MG IV (19:18)
[2024-07-04] MEDS: OXYTOCIN/RINGERS LACTATE 30 UNITS/500 ML BAG 40 UNITS IV (19:45)
[2024-07-04] MEDS: LACTATED RINGERS 1000ML 1,000 ML 125 ML IV (19:45)
[2024-07-04] MEDS: ACETAMINOPHEN 500MG TAB 1000 MG PO (20:34)
[2024-07-04] MEDS: OXYCODONE 5MG IMMEDIATE RELEASE TABLET 5 MG PO (23:21)
[2024-07-05] MEDS: CEFAZOLIN SODIUM 2 GM in 0.9 % SODIUM CHLORIDE 100 ML IV ×2 (00:15→08:37)
[2024-07-05] MEDS: ACETAMINOPHEN 500MG TAB 1000 MG PO ×4 (01:34→19:23)
[2024-07-05] MEDS: SIMETHICONE 80MG CHEWABLE TABLET 160 MG PO (01:35)
[2024-07-05] MEDS: KETOROLAC 30MG/ML VIAL 30 MG IV ×3 (01:35→13:56)
[2024-07-05] MEDS: LANOLIN CREAM 40GM TP (01:35)
[2024-07-05 06:42] LABS: Hematocrit 26.3 % (37.0-47.0)
[2024-07-05 07:07] LABS: Hemoglobin 8.5 g/dL (12.2-16.2)
[2024-07-05 08:20] VITALS: BP 119/60; PULSE 94; RESP 17; TEMP 37.2; O2SAT 99
[2024-07-05] MEDS: OXYCODONE 5MG IMMEDIATE RELEASE TABLET 5 MG PO ×3 (08:36→18:15)
--- NOTE | 2024-07-05 08:44 | EXP.ACUTE.PN ---
Subjective *Date: 07/05/24 *Time: 08:44 Interval history: POD # 1 s/p RLTCS with BS Feeling well. Pain controlled. Breast feeding. Lochia is appropriate. Voiding without difficulty and passing flatus. Tolerating regular diet. Denies fever/chills, chest pain and shortness of breath. No headaches, vision changes, lightheadedness/dizziness. She admits to mild lower extremity swelling. No calf pain. Ambulating well ad lexie. Medical Exam Vital signs and Labs for Last 24 Hours: Vital Signs Temp Pulse Pulse Resp BP BP Pulse Ox 07/04/24 20:39 98.2 F 82 18 124/58 L 100 07/04/24 19:33 97.2 F L 84 20 117/65 100 07/04/24 19:13 97.2 F L 88 20 117/65 100 07/04/24 19:06 97.5 F L 86 14 117/65 07/04/24 19:03 97.2 F L 89 20 117/65 99 07/04/24 18:53 97.2 F L 94 H 20 118/66 100 07/04/24 16:20 98.4 F 94 H 18 121/75 98 O2 Del Method 07/04/24 20:39 Room Air 07/04/24 19:33 Room Air 07/04/24 19:13 Room Air 07/04/24 19:06 07/04/24 19:03 Room Air 07/04/24 18:53 Room Air 07/04/24 16:20 Room Air Intake and Output 07/04/24 07/05/24 07/05/24 23:59 07:59 15:59 Intake Total 1500 / 1500 Output Total 275 / 275 1000 / 1000 Balance 1225 / 1225 -1000 / -1000 Intake: Intake, Total IV Amount 1500 / 1500 Output: Output, Urine Amount 275 / 275 Output, Urine Amount (Catheter) 1000 / 1000 Byrnes 1000 / 1000 Other: Weight 181 lb Laboratory Results - last 24 hr 07/04/24 15:40: WBC 7.7, RBC 3.79 L, Hgb 10.3 L, Hct 31.8 L, MCV 83.9, MCH 27.1, MCHC 32.3, RDW 14.7, Plt Count 219, MPV 9.2, Neut % (Auto) 78.3, Lymph % (Auto) 15.4, [place] % (Auto) 4.0, Eos % (Auto) 1.9, Baso % (Auto) 0.4, Neut # (Auto) 6.1, Lymph # (Auto) 1.2, [place] # (Auto) 0.3, Eos # (Auto) 0.2, Baso # (Auto) 0.0, Sodium 136, Potassium 3.7, Chloride 106, Carbon Dioxide 23, Anion Gap 10.7, BUN 8, Creatinine 0.40 L, Estimated Creat Clear 263, Estimated GFR 185, Est GFR ( Amer) 224, Glucose 84, Calcium 8.9, Blood Type A Positive, Antibody Screen Negative 07/05/24 06:30: Hgb 8.5 L D, Hct 26.3 L I & O for Labs for Last 24 Hours: Intake & Output 07/02/24 07/03/24 07/04/24 07/05/24 23:59 23:59 23:59 23:59 Intake Total 1500 / 1500 Output Total 275 / 275 1000 / 1000 Balance 1225 / 1225 -1000 / -1000 Weight 181 lb Head: Present atraumatic and normocephalic ENT: Present mucous membranes moist Neck: Present full ROM Respiratory: Present CTA bilaterally and normal respiratory effort Cardiac: Present Reg Rate and Rhythm GI: Present soft, tenderness (appropriate tenderness to palpation) and normal bowel sounds; Absent guarding Comments:: Uterine fundus firm and below umbilicus, pfannenstiel incision clean/dry/intact with steri strips present Rectal (female): Present deferred (female): Present deferred Extremities: Present full ROM and edema (+1 bilateral lower extremity swelling); Absent calf tenderness Assessment and Plan *Assessment and plan (1) S/P : Status: Acute Category: Surgical Code(s): Z98.891 - History of uterine scar from previous surgery (2) with 38 completed weeks gestation: Status: Acute Category: Medical Code(s): Z3A.38 - 38 weeks gestation of (3) Spontaneous onset of labor: Status: Acute Category: Medical (4) History of section: Problem Comment: x 2 Status: Acute Category: Surgical Code(s): Z98.891 - History of uterine scar from previous surgery (5) Request for sterilization: Status: Acute Category: Medical Code(s): Z30.2 - Encounter for sterilization (6) Acute blood loss anemia: Status: Acute Category: Medical Code(s): D62 - Acute posthemorrhagic anemia Plan Continue routine care Encouraged increased ambulation Venofer 200 mg IV x 1 dose Plan d/c home tomorrow
[2024-07-05] MEDS: IRON SUCROSE COMPLEX 200 MG in 0.9 % SODIUM CHLORIDE 100 ML 220 MG IV (09:30)
[2024-07-05] MEDS: SODIUM CHLORIDE 0.9% 10ML FLUSH SYRINGE 10 ML IV (13:57)
[2024-07-05 17:30] VITALS: BP 102/69; PULSE 88; RESP 16; TEMP 36.9; O2SAT 99
[2024-07-05] MEDS: IBUPROFEN 400 MG TABLET 800 MG PO (19:24)
[2024-07-06] MEDS: OXYCODONE 5MG IMMEDIATE RELEASE TABLET 5 MG PO (01:05)
[2024-07-06] MEDS: ACETAMINOPHEN 500MG TAB 1000 MG PO ×2 (01:06→08:33)
[2024-07-06] MEDS: IBUPROFEN 400 MG TABLET 800 MG PO (04:55)
[2024-07-06 08:35] VITALS: BP 119/70; PULSE 100; RESP 18; TEMP 36.9; O2SAT 99
--- NOTE | 2024-07-06 09:56 | EXP.DC.SUM ---
General Admission date:: 07/04/24 Discharge date: 07/06/24 HPI HPI HPI: Mrs Shayla Eller is a 34 yo at 38w5d who presents to [facility] L&D with complaint of regular, painful contractions. She states contractions have been irregular for the past few days but increased after lunch today. No leakage of fluid or vaginal bleeding. Baby is active. History of x 2. Upon arrival to L&D she was noted to be idania every 3-4 minutes with a lot of rectal pressure during contraction. SVE 0.5/50/-2 midline, very soft. She was given IV fluids with little relief from contractions. She is complete with childbearing and desire permanent sterilization. History of Present Criteria for establishing EDC:: LMP confirmed by 1st trimester US Ultrasounds: normal mid trimester US Obstetrical complications: previous (x 2) Medical complications: none Labs Blood type: A (+) positive Rubella: immune RPR/VDRL: nonreactive HBsAG: negative Hospital Course Hospital Course Hospital Course: Shayal Eller is a 34yo POD#2 from a RCS and BSG. She is doing well. Ambulating, voiding and tolerating PO. Her pain is well controlled. Her lochia is scant. She desires DC home today. All questions and concerns were addressed. She delivered a live viable male infant, Abimael. He weighed 7lb 9oz, Apgars were 7/9 at 1 and 5 minutes. He was delivered at 1800 on 07/04/24. Her EBL was 700ml, she experienced uterine atony which was controlled a B-caro suture and Methergine 0.2 mg IM, as well as pitocin. She received an IV iron infusion on POD#1. Exam Data for Last 24 hours Vital signs and Labs for Last 24 Hours: Temp Pulse Resp BP Pulse Ox O2 Del Method 98.5 F 100 H 18 119/70 99 Room Air 07/06/24 08:35 07/06/24 08:35 07/06/24 08:35 07/06/24 08:35 07/06/24 08:35 07/06/24 08:35 I & O for Last 24 hours: Intake & Output 07/03/24 07/04/24 07/05/24 07/06/24 23:59 23:59 23:59 23:59 Intake Total 1500 / 1500 Output Total 275 / 275 1000 / 1000 Balance 1225 / 1225 -1000 / -1000 Weight 181 lb Narrative: Head: Present atraumatic and normocephalic ENT: Present mucous membranes moist Neck: Present full ROM Respiratory: Present CTA bilaterally and normal respiratory effort Cardiac: Present Reg Rate and Rhythm GI: Present soft, tenderness (appropriate tenderness to palpation) and normal bowel sounds; Absent guarding Comments:: Uterine fundus firm and below umbilicus, pfannenstiel incision clean/dry/intact with steri strips present Rectal (female): Present deferred (female): Present deferred Extremities: Present full ROM and edema (+1 bilateral lower extremity swelling); Absent calf tenderness DS: Diagnosis Discharge Diagnosis (1) S/P : Status: Acute Code(s): Z98.891 - History of uterine scar from previous surgery (2) with 38 completed weeks gestation: Status: Acute Code(s): Z3A.38 - 38 weeks gestation of (3) Spontaneous onset of labor: Status: Acute (4) History of section: Status: Acute Code(s): Z98.891 - History of uterine scar from previous surgery Problem details: x 2 (5) Request for sterilization: Status: Acute Code(s): Z30.2 - Encounter for sterilization (6) Acute blood loss anemia: Status: Acute Code(s): D62 - Acute posthemorrhagic anemia Meds Home Medications and Allergies Home Medications ?Medication ?Instructions ?Recorded ?Confirmed ?Type vit 87-iron carb,asp 18 1 cap PO DAILY #30 caps 12/22/23 07/04/24 Rx mg-folic acid 1 mg-dha 350 mg capsule (Prenate Mini (ferrous asparto glycinate)) acetaminophen 500 mg tablet 500 mg PO Q6H PRN fever or pain 07/06/24 Rx #30 tabs ferrous sulfate 325 mg (65 mg 325 mg PO DAILY #30 tabs 07/06/24 Rx iron) tablet,delayed release ibuprofen 800 mg tablet 800 mg PO Q8H PRN pain #60 tabs 07/06/24 Rx oxycodone 5 mg tablet 5 mg PO Q8H PRN pain #25 tabs 07/06/24 Rx sennosides 8.6 mg tablet (Senna 8.6 mg PO BIDP PRN Constipation 07/06/24 Rx Lax) #60 tabs simethicone 125 mg tablet 125 mg PO DAILY PRN abdominal 07/06/24 Rx distention #60 tabs New Prescriptions to Start Prescriptions: acetaminophen Behzad,Helen ferrous sulfate Behzad,Helen ibuprofen Behzad,Helen oxycodone Behzad,Helen sennosides [Senna Lax] Behzad,Helen simethicone Behzad,Helen Allergies Allergy/AdvReac Type Severity Reaction Status Date / Time No Known Allergies Allergy Verified 07/03/24 13:46 Discharge Plan Disposition Patient Disposition: Home, Self-Care Discharge Order Discharge Orders: Discharge Order (Routine); Ordered 07/06/24 Ordered By: Helen Wen Follow up Plan Follow up with: Hayley Sutherland DO [Staff Physician] - 07/19/24 10:15 am Prescriptions/Medication Reconciliation: New acetaminophen 500 mg tablet 500 mg PO Q6H PRN (Reason: fever or pain) Qty: 30 3RF sennosides [Senna Lax] 8.6 mg Tablet 8.6 mg PO BIDP PRN (Reason: Constipation) Qty: 60 2RF ibuprofen 800 mg tablet 800 mg PO Q8H PRN (Reason: pain) Qty: 60 2RF simethicone 125 mg tablet 125 mg PO DAILY PRN (Reason: abdominal distention) Qty: 60 2RF ferrous sulfate 325 mg (65 mg iron) tablet,delayed release (DR/EC) 325 mg PO DAILY Qty: 30 3RF oxycodone 5 mg tablet 5 mg PO Q8H PRN (Reason: pain) Qty: 25 0RF Continued Prenate Mini (ferr asp glycin) 18-1-350 mg capsule 1 cap PO DAILY Qty: 30 12RF Problem Reconciliation Problems Reviewed?: Yes Patient Discharge Instructions ACTIVITY: Continue current activity DIET: regular diet Additional Instructions: Congratulations on the delivery of your sweet baby boy. It is our privilege to be a part of your OBGYN team and we are so thankful to be a part of your special day. Discharge: 1. Take 800 mg Ibuprofen every 8 hours as needed for pain. You can also take 500-1000mg of Tylenol in between doses, every 6-8 hours. Use prescription pain medicine for pain you feel in between 8 hour interval. -No driving while taking narcotic pain medications. In order to drive you should be able to slam on the brakes without significant abdominal pain. 2. Wean from prescription pain medicine first. Do not drive while taking it. 3. Prescription pain medicine can make you constipated. Colace can be taken 1-2 times per day as you need. Make sure to drink at least 8 cups of water per day. 4. Iron supplements can make you constipated. Colace can be taken 1-2 times per day as you need. You can take iron tablets every other day if constipation is too bad. 5. Nothing in the vagina for 6 weeks - no intercourse, douching, tampons. No tub baths or swimming pools 6. Do not lift greater than 15 pounds for 6 weeks, this is the equivalent of 2 gallons of milk. 7. Reasons to return to L&D or call On-Call doctor - fever (greater than 100.4) - heavy vaginal bleeding (soaking through 1 pad in less than 2 hours or passing clots that are egg sized) - vaginal discharge (malodorous and/or purulent) - bleeding or discharge from her incision - severe headaches, leg tenderness/edema, or any other symptoms that warrant immediate medical attention. 8. depression/blues - Normal to feel anxious/overwhelmed for first 2 weeks - Talk to your doctor if: anxiety lasts over 2 weeks, trouble bonding with baby, withdrawing from other family members, thoughts of harming yourself or others Helen Wen DO [facility] [phone] *Nothing in the Vagina for 6 weeks* *No strenuous activity* *No heavy lifting* *No tub baths until okay's by MD* Print Language: Vietnamese Providers Primary Care Provider: Yelena Tejada Provider: Hayley Sutherland Attending Provider: Hayley Sutherland
[2024-07-06 10:11] LABS: Rapid Plasma Reagin Ab Titer Non Reactive titer (NonRea<1:1)
--- NOTE | 2024-07-08 05:48 | EXP.ANES.II ---
[facility] Anesthesia Record Part II Anesthesia Record Part II Discharge Time: 19:33 Destination: Obstetric PACU nurse assessment reviewed?: Yes Patient Condition:: Good Anesthesia Complications:: None Swallowing reflex intact?: Yes Airway Patency: Patent Cyanosis?: No Blood Pressure: 117/65 SaO2: 100 Respiratory Rate: 20 Pulse Rate: 84 Temperature: 97.2 F Mental Status: Alert & Oriented Pain level:: 0 Nausea and/or vomitting:: None Intake, IV Amount: 0 Hydration: Adequate
[2024-07-08 05:49] VITALS: BP 117/65; PULSE 84; RESP 20; TEMP 36.2; O2SAT 100
== END 2024-07-06 10:40 | disposition home or self-care (01) | DRG 784 ==
LOC: OBOUT 15:39 → OB 15:39
PROVIDERS: Admitting Provider Obstetrics & Gynecology; PCP Nurse Practitioner Family; Visit Provider Obstetrics & Gynecology
PROC: 10D00Z1 Extraction of Products of Conception, Low, Open Approach (ICD-10-PCS; principal; 2024-07-04 17:30)
DX: O34.211 Maternal care for low transverse scar from previous cesarean delivery (principal); D62 Acute posthemorrhagic anemia; Z3A.38 38 weeks gestation of pregnancy; Z37.0 Single live birth; Z30.2 Encounter for sterilization; O90.81 Anemia of the puerperium
CPT/HCPCS: 59514; 58700; 36415; 59025; 80048; 85014; 85018; 85025; 86593; 86850; 87086; J1756; J1885; J2175; J2250; J2405; J7120

== ENCOUNTER 2024-07-06 20:44 | Observation (INO) | payer OTHER, SELFPAY ==
[2024-07-06 20:54] VITALS: BMI 29.7
[2024-07-06 21:13] VITALS: BP 125/71; PULSE 95; RESP 16; TEMP 37.1; O2SAT 97
[2024-07-06 21:37] LABS: Basophils # 0.1 K/mm3 (0-0.2); Eosinophils # 0.3 K/mm3 (0.0-0.4); Eosinophils % 3.9 % (0.1-12.0); Hematocrit 25.9 % (37.0-47.0); Hemoglobin 8.4 g/dL (12.2-16.2); Lymphocytes % 11.6 % (10-50); Mean Corpuscular HGB Conc 32.3 g/dL (31.8-35.4); Mean Corpuscular Hemoglobin 27.2 pg (27.0-31.2); Mean Corpuscular Volume 84.2 fl (81-99); Mean Platelet Volume 8.9 fl (7.4-10.4); Monocytes # 0.4 K/mm3 (0.1-1.0); Monocytes % 4.3 % (1.7-9.3); Neutrophils # 6.6 K/mm3 (1.8-7.8); Neutrophils % 79.3 % (37.0-80.0); Platelet Count 207 K/mm3 (142-424); Red Blood Count 3.07 M/mm3 (4.20-5.40); Red Cell Distribution Width 14.9 % (11.5-17.5); White Blood Count 8.3 K/mm3 (4.8-10.8)
[2024-07-06 21:39] LABS: Albumin Level 3.3 g/dl (3.5-5.0); Chloride 112 mmol/L (98-107); Sodium 136 mmol/L (136-145)
[2024-07-06 21:40] LABS: Potassium 4.1 mmoL/L (3.5-5.1)
[2024-07-06 21:42] LABS: Alanine Aminotransferase 12 U/L (12-78); Anion Gap 6.1 mEq/L (5-15); Aspartate Amino Transferase 35 U/L (14-36); Blood Urea Nitrogen 5 mg/dl (7-17); Carbon Dioxide 22 mmol/L (22.0-30.0); Creatinine Clearance Estimated 251 mL/min (50-200); Estimated Glomerular Filt Rate 185 ml/min (>60); GFR (African American) 224 ML/MIN (>60)
[2024-07-06 21:43] LABS: Albumin/Globulin Ratio 1.2 (1.1-1.8); Alkaline Phosphatase 75 U/L (38-126); Bilirubin,Total 0.5 mg/dl (0.2-1.3); Calcium 8.2 mg/dl (8.4-10.2); Globulin 2.7 g/dL (1.3-3.2); Glucose 87 mg/dl (74-100)
--- NOTE | 2024-07-06 21:55 | PC.NURSE ---
spoke to Dr Wen at 2009 about patient coming to unit to be admitted for possible endometritis, new orders received for CBC, CMP, UA, BLood Cultures, , vaginal wound culture, genital swab for Group A strep, saline lock insertion, ampicillin 2g iv q6h, clindamycin 900mg iv q8h, gentamycin 5mg/kg q24h, iron po daily, docusate 100mg po bid prn, tylenol 1000mg po q6h, ibuprofen 800mg po q8h, simithecone 160 mg q6h prn, senna 1 tab po daily prn, oxycodone 5mg po q4h prn, zofran 4mg ivp q6h prn, lactobacillus 1 tab po bid, phone orders repeated and verified
--- NOTE | 2024-07-06 22:00 | PC.NURSE ---
patient arrived to floor ambulatory at 2049 with in stable condition
[2024-07-06 22:35] LABS: Microscopic, Urine URINE MICROSCOPIC (MICROSCOPIC)
[2024-07-06 22:35] LABS: Coronavirus 19, PCR Not Detected (NotDetected); Influenza A, PCR Not Detected (NotDetected); Influenza B, PCR Not Detected (NotDetected)
[2024-07-06 22:39] LABS: Bilirubin,Urine Negative (Negative); Blood, Urine 3+ (Negative); Color,Urine YELLOW (Yellow); Glucose,Urine (UA) Negative (Negative); Ketones,Urine Negative (Negative); Leukocyte Esterase,Urine TRACE (Negative); Nitrate,Urine Negative (Negative); Protein,Urine Negative (Negative); Specific Gravity, Urine 1.015 (1.005-1.030); Urobilinogen,Urine 0.2 EU/dl (0.2)
[2024-07-06 22:40] LABS: Appearance,Urine Slightly Cloudy (Clear)
[2024-07-06 22:53] LABS: RBC,Urine 20-50 #/hpf (0-3)
[2024-07-06 23:32] VITALS: BP 124/72; PULSE 113; RESP 16; TEMP 36.8
[2024-07-07 05:13] VITALS: BP 108/64; PULSE 90; RESP 16; TEMP 36.7
--- NOTE | 2024-07-07 07:15 | PC.NURSE ---
Pt sleeping at this time. No s/s of distress.
[2024-07-07 09:05] VITALS: BP 111/76; PULSE 90; RESP 15; TEMP 36.6; O2SAT 99
[2024-07-07 09:09] VITALS: O2SAT 99
--- NOTE | 2024-07-07 09:10 | PC.NURSE ---
Pt sitting up in bed, visiting with family at this time. Denies needs.
--- NOTE | 2024-07-07 09:33 | P.CONPHA_ITS ---
Pharmacy Consult Date: 07/07/24 Time: 09:33 Referring provider: STAN Reason for Consult:: PHARMACY CONSULTED TO DOSE AND MANAGE GENTAMICIN THERAPY Allergies Allergy/AdvReac Type Severity Reaction Status Date / Time No Known Allergies Allergy Verified 07/03/24 13:46 Home Medications ?Medication ?Instructions ?Recorded ?Confirmed ?Type vit 87-iron carb,asp 18 1 cap PO DAILY #30 caps 12/22/23 07/07/24 Rx mg-folic acid 1 mg-dha 350 mg capsule (Prenate Mini (ferrous asparto glycinate)) acetaminophen 500 mg tablet 500 mg PO Q6H PRN fever or pain 07/06/24 07/07/24 Rx #30 tabs ferrous sulfate 325 mg (65 mg 325 mg PO DAILY #30 tabs 07/06/24 07/07/24 Rx iron) tablet,delayed release ibuprofen 800 mg tablet 800 mg PO Q8H PRN pain #60 tabs 07/06/24 07/07/24 Rx oxycodone 5 mg tablet 5 mg PO Q8H PRN pain #25 tabs 07/06/24 07/07/24 Rx sennosides 8.6 mg tablet (Senna 8.6 mg PO BIDP PRN Constipation 07/06/24 07/07/24 Rx Lax) #60 tabs simethicone 125 mg tablet 125 mg PO DAILY PRN abdominal 07/06/24 07/07/24 Rx distention #60 tabs New Prescriptions to Start Prescriptions: Height: 1.63 m Weight: 78.744 kg Laboratory Results:: Laboratory Results - last 24 hr 07/06/24 21:15: WBC 8.3, RBC 3.07 L, Hgb 8.4 L, Hct 25.9 L, MCV 84.2, MCH 27.2, MCHC 32.3, RDW 14.9, Plt Count 207, MPV 8.9, Neut % (Auto) 79.3, Lymph % (Auto) 11.6, [place] % (Auto) 4.3, Eos % (Auto) 3.9, Baso % (Auto) 1.0, Neut # (Auto) 6.6, Lymph # (Auto) 1.0, [place] # (Auto) 0.4, Eos # (Auto) 0.3, Baso # (Auto) 0.1, Sodium 136, Potassium 4.1, Chloride 112 H, Carbon Dioxide 22, Anion Gap 6.1, BUN 5 L D, Creatinine 0.40 L, Estimated Creat Clear 251, Estimated GFR 185, Est GFR ( Amer) 224, Glucose 87, Calcium 8.2 L, Total Bilirubin 0.5, AST 35, ALT 12, Alkaline Phosphatase 75, Total Protein 6.0 L, Albumin 3.3 L, Globulin 2.7, Albumin/Globulin Ratio 1.2, Urine Color Yellow, Urine Appearance Slightly cloudy, Urine pH 7.0, Ur Specific [place] 1.015, Urine Protein Negative, Urine Glucose (UA) Negative, Urine Ketones Negative, Urine Blood 3+, Urine Nitrate Negative, Urine Bilirubin Negative, Urine Urobilinogen 0.2, Ur Leukocyte Esterase Trace, Urine RBC 20-50, Urine WBC None, Ur Squamous Epith Cells 3-5, Urine Bacteria None 07/06/24 21:20: SARS-CoV-2 (PCR) Not detected, Influenza A Untype (PCR) Not detected, Influenza Type B (PCR) Not detected Medical History: Medical History (Updated 07/07/24 @ 00:00 by Background Jasen) Acute blood loss anemia with 38 completed weeks gestation Spontaneous onset of labor Nausea Request for sterilization Assessment and Plan Assessment and plan all Dx Assessment and Plan for all problems:: PT DISCHARGED YESTERDAY AFTER . RETURNED LAST EVENING. PT STARTED ON AMPICILLIN 2GM IV Q6H, CLINDAMYCIN 900MG IV Q8H AND PHARMACY CONSULTED FOR GENTAMICIN DOSE. [facility] SUGGESTED GENTAMICIN 320MG. DOSE GIVEN. DRUG LEVEL WILL BE OBTAINED TODAY AND ADJUSTED ACCORDINGLY. PHARMACY WILL FOLLOW DAILY LONG PATIENT REMAINS ON GENTAMICIN.
[2024-07-07 11:33] LABS: Gentamicin,Random 0.7 ug/ml
--- NOTE | 2024-07-07 12:00 | PC.NURSE ---
Dr Wen at bedside.
--- NOTE | 2024-07-07 12:11 | EXP.HPDC ---
General Admission date:: 07/06/24 Discharge date: 07/07/24 *Admission Date: 07/06/24 *Chief complaint: Postop fever *History of present illness: Shayla is a 34yo POD#2 from a repeat delivery and bilateral salpingectomy. She called the after hours physician line with complaints of a fever of 100 and lower abdominal pain. Decision was made to bring the patient in for observation and give antibiotics for suspected endometritis. She has no known drug allergies. She is breast feeding. Of note she also has a persistent cough and is exposed to respiratory viruses daily at work. [facility] Disclaimer: The information contained in this section may have been updated after the patient was seen, as this information can be updated by other users. Medical History (Updated 07/07/24 @ 12:23 by Helen Wen DO) Acute blood loss anemia with 38 completed weeks gestation Spontaneous onset of labor Nausea Request for sterilization Surgical History (Updated 07/07/24 @ 00:00 by Chris Aggarwal) S/P History of section Hx of oral surgery Family History Other Coronary artery disease Heart attack Social History (Updated 07/06/24 @ 21:51 by Helen Youssef RN) Smoking Status: Never smoker alcohol intake: never substance use type: denies use current occupational status: employed Travel in the last 8 weeks: None Review of Systems Review of Systems Review of systems (narrative): Review of Systems Constitutional: endorses fever, chills, and sweats Eyes: Denies vision change/ pain Respiratory: endorses cough. denies shortness of breath Cardiovascular: Denies chest pain and lightheadedness Gastrointestinal: Admits abdominal pain. Denies nausea, vomiting. Genitourinary: Denies dysuria and incontinence Musculoskeletal: Denies shoulder pain and back pain Neurological: Denies change in speech or headaches Exam Data for Last 24 hours Vital signs and Labs for Last 24 Hours: Temp Pulse Resp BP Pulse Ox O2 Del Method 97.9 F 90 15 111/76 99 Room Air 07/07/24 09:05 07/07/24 09:05 07/07/24 09:05 07/07/24 09:05 07/07/24 09:09 07/07/24 10:50 Laboratory Results - last 24 hr 07/06/24 21:15: WBC 8.3, RBC 3.07 L, Hgb 8.4 L, Hct 25.9 L, MCV 84.2, MCH 27.2, MCHC 32.3, RDW 14.9, Plt Count 207, MPV 8.9, Neut % (Auto) 79.3, Lymph % (Auto) 11.6, [place] % (Auto) 4.3, Eos % (Auto) 3.9, Baso % (Auto) 1.0, Neut # (Auto) 6.6, Lymph # (Auto) 1.0, [place] # (Auto) 0.4, Eos # (Auto) 0.3, Baso # (Auto) 0.1, Sodium 136, Potassium 4.1, Chloride 112 H, Carbon Dioxide 22, Anion Gap 6.1, BUN 5 L D, Creatinine 0.40 L, Estimated Creat Clear 251, Estimated GFR 185, Est GFR ( Amer) 224, Glucose 87, Calcium 8.2 L, Total Bilirubin 0.5, AST 35, ALT 12, Alkaline Phosphatase 75, Total Protein 6.0 L, Albumin 3.3 L, Globulin 2.7, Albumin/Globulin Ratio 1.2, Urine Color Yellow, Urine Appearance Slightly cloudy, Urine pH 7.0, Ur Specific [place] 1.015, Urine Protein Negative, Urine Glucose (UA) Negative, Urine Ketones Negative, Urine Blood 3+, Urine Nitrate Negative, Urine Bilirubin Negative, Urine Urobilinogen 0.2, Ur Leukocyte Esterase Trace, Urine RBC 20-50, Urine WBC None, Ur Squamous Epith Cells 3-5, Urine Bacteria None 07/06/24 21:20: SARS-CoV-2 (PCR) Not detected, Influenza A Untype (PCR) Not detected, Influenza Type B (PCR) Not detected 07/07/24 11:05: Random Gentamicin 0.7 I & O for Last 24 hours: Intake & Output 07/04/24 07/05/24 07/06/24 07/07/24 23:59 23:59 23:59 23:59 Output Total 0 / 0 0 / 0 Balance 0 / 0 0 / 0 Weight 173 lb 9.6 oz 173 lb 9.6 oz Constitutional Constitutional: no acute distress *Routine HEENT Exam Head: Present normocephalic Eye: Present EOMI and PERRL ENT: Present mucous membranes moist *Routine Neck Exam Neck: Present supple; Absent lymphadenopathy *Routine Respiratory Exam Respiratory: Present CTA bilaterally
--- NOTE | 2024-07-07 13:51 | PC.NURSE ---
All charting and care completed by RANDI Srinivasan was completed under my direct supervision
== END 2024-07-07 13:05 | disposition home or self-care (01) ==
PROVIDERS: Admitting Provider Obstetrics & Gynecology; PCP Nurse Practitioner Family; Visit Provider Obstetrics & Gynecology
DX: O86.4 Pyrexia of unknown origin following delivery (principal); O86.12 Endometritis following delivery; R05.9 Cough, unspecified
CPT/HCPCS: 36415; 80053; 80170; 81001; 85025; 87040; 87070; 87205; 87636; G0378; J0290; J1580